=== PATIENT | male | born 1965 | race Caucasian/White ===

== ENCOUNTER → 2016-12-19 | Outpatient (CLI) | payer BC ==
[~2016-12-19] MED LIST: ASPI-1053 PO; HYDR1TAB73 PO
--- NOTE | 2016-12-19 16:07 | DI ---
Indication: ITS.REASON: M54.5 LOW BACK PAIN PROCEDURE: LUMBAR SPINE COMP W/O BEND: Encounter: Initial Comparison: None Findings: Five views of the lumbosacral spine including oblique views demonstrates no fracture or subluxations. There is spina bifida occulta defect of S1. Pedicles and transverse processes are intact. Mild degenerative endplate changes are noted. No pars defects. There are scattered nonspecific calcifications in the left flank region not appearing to project definitively over the kidneys or left ureter. Impression: Age compatible degenerative changes of the spine without traumatic variation. See above. .
== END ==
LOC: IMA 14:51
PROVIDERS: ATTEND Family Medicine
DX: M51.37 Other intervertebral disc degeneration, lumbosacral region (principal); M54.5 Low back pain

== ENCOUNTER 2017-01-04 22:13 | Emergency (ER) | payer BC ==
[~2017-01-04] VITALS: Ht 177.8 cm; Wt 97.2 kg
[~2017-01-04 22:13] MED LIST changes: +ASPI1POW35 PO; +LISI1TAB11 PO
--- OUTSIDE RECORDS SUMMARY | 2017-01-04 22:17 | XMS REPORT | Continuity of Care Document ---
Author Author [facility] Address Unknown Phone Unavailable Allergies Medications Problems Date Dx Coded Attending Type Code Diagnosis Diagnosed By 03/24/2013 Sinan Parikh MD F 038.11 METHICILLIN SUSCEPTIBLE STAPHYLOCOCCUS AUREUS SEPT 03/24/2013 Sinan Parikh MD F 112.3 CUTANEOUS CANDIDIASIS 03/24/2013 Sinan Parikh MD F 262 OTH SEVERE MALNUTRITION 03/24/2013 Sinan Parikh MD F 272.1 PURE HYPERGLYCERIDEMIA 03/24/2013 Sinan Parikh MD F 272.4 HYPERLIPIDEMIA NEC/NOS 03/24/2013 Sinan Parikh MD F 275.2 DIS MAGNESIUM METABOLISM 03/24/2013 Sinan Parikh MD F 276.8 HYPOPOTASSEMIA 03/24/2013 Sinan Parikh MD L F 278.00 OBESITY, NOS 03/24/2013 Sinan Parikh MD F 285.9 ANEMIA NOS 03/24/2013 Sinan Parikh MD L F 287.49 OTHER SECONDARY THROMBOCYTOPENIA 03/24/2013 Sinan Parikh MD L F 320.3 STAPHYLOCOCC MENINGITIS 03/24/2013 Sinan Parikh MD 322.9 MENINGITIS NOS 03/24/2013 Sinan Parikh MD L F 324.1 INTRASPINAL ABSCESS 03/24/2013 Sinan Parikh MD L F 346.90 MIGRAINE UNSPECIFIED W/O INTRACT MGRN W/O STATUS M 03/24/2013 Sinan Parikh MD L F 348.89 OTHER CONDITIONS OF BRAIN 03/24/2013 Sinan Parikh MD L F 349.82 TOXIC ENCEPHALOPATHY 03/24/2013 Sinan Parikh MD L F 401.9 HYPERTENSION NOS 03/24/2013 Sinan Parikh MD L F 427.89 CARDIAC DYSRHYTHMIAS NEC 03/24/2013 Sinan Parikh MD L F 453.81 ACUTE VENOUS EMBOLISM THROMBOSIS SUPERFICIAL VEI 03/24/2013 Sinan Parikh MD L F 478.24 RETROPHARYNGEAL ABSCESS 03/24/2013 Sinan Parikh MD 514 PULM CONGEST/HYPOSTASIS 03/24/2013 Sinan Parikh MD 518.81 ACUTE RESPIRATORY FAILURE 03/24/2013 Sinan Parikh MD 571.8 CHRONIC LIVER DIS NEC 03/24/2013 Sinan Parikh MD 575.0 ACUTE CHOLECYSTITIS 03/24/2013 Sinan Parikh MD 576.8 DIS OF BILIARY TRACT NEC 03/24/2013 Sinan Parikh MD 577.0 ACUTE PANCREATITIS 03/24/2013 Sinan Parikh MD 584.9 ACUTE RENAL FAILURE, UNSPECIFIED 03/24/2013 Sinan Parikh MD 722.91 DISC DIS NEC/NOS-CERV 03/24/2013 Sinan Parikh MD 785.0 TACHYCARDIA NOS 03/24/2013 Sinan Parikh MD 785.52 SEPTIC SHOCK 03/24/2013 Sinan Parikh MD 787.20 DYSPHAGIA, UNSPECIFIED 03/24/2013 Sinan Parikh MD 787.91 DIARRHEA 03/24/2013 Sinan Parikh MD 995.92 SEVERE SEPSIS 03/24/2013 Sinan Parikh MD 996.74 OTH COMPL DUE TO OTH VASCULAR DEVICE, IMPLANT,GRAFT 03/24/2013 Sinan Parikh MD E849.7 ACCID IN RESIDENT INSTIT 03/24/2013 Sinan Parikh MD E879.8 ABN REACT-PROCEDURE NEC 03/24/2013 Sinan Parikh MD E938.3 ADV EFF INTRAVEN ANESTH 03/24/2013 Sinan Parikh MD E947.9 ADV EFF MEDICINAL NOS 03/24/2013 Sinan Parikh MD V03.82 PROPHYLACTIC VACC AGAINST STREPTOCOCCUS PNEUMONIAE Procedures Code Description Performed By Performed On 12.23 SPINAL TAP Sinan Parikh MD 03/24/2013 28.0 PERITONSILLAR I D Vika MCBRIDE, Sourav R 03/24/2013 38.93 VENOUS CATHETERIZATION NEC Sinan Parikh MD 03/24/2013 88.72 DX ULTRASOUND-HEART Magdi MCBRIDE, Wassim H 03/24/2013 96.04 INSERT ENDOTRACHEAL TUBE Fritz Justin MD 03/24/2013 96.6 ENTERAL INFUSION OF CONCENTRATED NUT. SUBSTANCES Sinan Parikh MD 03/24/2013 96.72 CONTINUOUS INVASIVE MECHANICAL VENTILATION=/>96 C Sinan Parikh MD 03/24/2013 Encounters ACCT No. Visit Date/Time Discharge Status Pt. Type Provider Facility Loc./Unit Complaint [id number] 05/07/2013 08:54:00 2012 23:59:59 CLS Outpatient [id number] 04/29/2013 10:05:00 2012 23:59:59 CLS Outpatient
--- OUTSIDE RECORDS SUMMARY | 2017-01-04 22:17 | XMS REPORT ---
Author Author Timothy Nunez Organization [employer] Address Unknown Phone Unavailable Care Team Providers Care Tobacco Sizer Name Role Phone Timothy Nunez CP Unavailable Allergies No Known Allergies Problems Problem Type Condition ICD-9 Code Onset Dates Condition Status Assessment Routine general medical examination at health care facility V70.0 Active Problem Health examination of defined subpopulation V70.5 Active Medications No Known Medications Procedures Procedure Coding System Code Date Collection of drug screen CPT-4 SAMARA Oct 24, 2014 Results No Known Results Summary Purpose [employer] Submission
[2017-01-04 22:32] VITALS: Ht 177.8 cm; Wt 97.2 kg
[2017-01-04] MEDS ORDERED: NORMAL SALINE 1,000 ML IV ONE (23:14)
[2017-01-04] MEDS ORDERED: ONDANSETRON 4mg/2ml INJECTION IV ONE (23:15)
[2017-01-04] MEDS ORDERED: KETOROLAC 30mg/ml INJECTION IV ONE (23:15)
--- OUTSIDE RECORDS SUMMARY | 2017-01-04 23:29 | XMS REPORT | Continuity of Care Document ---
Author Author [facility] Address Unknown Phone Unavailable Allergies Medications Problems [...] Status Pt. Type Provider Facility Loc./Unit Complaint [id number] 05/07/2013 08:54:00 2012 23:59:59 CLS Outpatient [id number] 04/29/2013 10:05:00 2012 23:59:59 CLS Outpatient
--- NOTE | 2017-01-04 23:45 | NUR ---
X-RAY TRANSPORTED TO X-RAY VIA STRETCHER PER X-RAY TECH.
--- NOTE | 2017-01-04 23:56 | NUR ---
ROOM PT RETURNED FROM XRAY PER CART, MOVED PT TO ROOM 1 PT REPORTS HIS PAIN IS DOWN TO 2/20 NOW NAUSEA GONE
[2017-01-05 00:02] LABS: BLOOD, URINE 3+ (NEGATIVE); COLOR,URINE YELLOW (YELLOW); LEUKOCYTE ESTERASE ,URINE NEGATIVE (NEGATIVE); NITRITE,URINE NEGATIVE (NEGATIVE); UROBILINOGEN,URINE 0.2 EU/DL (NORMAL)
[2017-01-05 00:03] LABS: CHLORIDE 103 MEQ/L (98-107)
[2017-01-05 00:06] LABS: ANION GAP 18 MEQ/L (5-15); BUN/CREATININE RATIO 19 RATIO (6-26); CALCIUM 9.8 MG/DL (8.4-10.2); CO2 - CARBON DIOXIDE 21 MEQ/L (22-30); CREATININE 1.4 MG/DL (0.8-1.5); GLOMERULAR FILTRATION RATE 54; GLUCOSE 200 MG/DL (75-110); POTASSIUM 3.4 MEQ/L (3.6-5); SODIUM 142 MEQ/L (134-144)
[2017-01-05 00:09] LABS: BACTERIA,URINE NONE SEEN (NEGATIVE); RBC,URINE 30-50 /HPF (0-3); YEAST,URINE 1+ (NEGATIVE)
[2017-01-05 00:12] LABS: HCT - HEMATOCRIT 48.7 % (41-53); HGB - HEMOGLOBIN 18.2 GM/DL (13.5-17.5); MEAN CORPUSCULAR HGB 31.3 UUG (26-34); MEAN CORPUSCULAR HGB CONC(MCHC 37.4 GM/DL (31-37); MEAN CORPUSCULAR VOLUME 83.8 UM3 (80-100); MEAN PLATELET VOLUME 10.2 UM3 (9.4-12.4); RED BLOOD COUNT 5.81 M/MM3 (4.50-5.90); WBC - WHITE BLOOD COUNT 17.2 T/MM3 (4.5-11.0)
--- NOTE | 2017-01-05 00:12 | NUR ---
STATUS PT REPORTS HIS PAIN IS FINE, RATES PAIN 2/10 DENIES ANY NAUSEA
[2017-01-05 00:18] LABS: BAND NEUTROPHILS # 0.2 T/MM3; MONOCYTES # (MANUAL) 0.2 T/MM3 (0-0.8); NEUTROPHILS #(MANUAL)-ABSOLUTE 15.8 T/MM3 (1.8-7.7); TOTAL CELLS COUNTED 100 %
--- NOTE | 2017-01-05 01:04 | ERPDOC ---
Departure Disposition Decision Date: Jan 05, 2017 Disposition Decision Time: 01:42 Disposition: 01 DISCHARGED HOME, SELF-CARE Impression Impression Impression: Primary Impression: Ureterolithiasis Severity: Moderate Condition: Improved Seen By: Physician only Referrals: LEONEL HERMAN MD (Family) 2 Days ANNAMARIE PARRA MD 1 Week Patient Instructions: Ureteral Stones (ED) Problems/Meds/Labs Reviewed?: Yes Medications reviewed and manag: Yes Additional Instructions: You have two stones that haven't made it from your kidney into your ureter. This would explain why your pain is chronic and not improving. Take naproxen as needed for pain; take the norco for pain that is not controlled. Follow up with your doctor and call Dr. Parra's office for an appointment. Follow up care ordered?: Yes Mental Status: Alert, Oriented Scripts Hydrocodone/Acetaminophen (Reliance 5-325 Tablet) 5-325 Tablet 1-2 TAB PO Q6HR Y for PAIN, #20 TAB 0 Refills Prov: JANUARY,KARRIE Us DO 01/05/17 HPI - Abdominal Pain General Chief Complaint: Nausea,Vomiting,Diarrhea Stated Complaint: BACK PAIN,VOMITING Time Seen by Provider: 23:14 Source: patient, family History/Exam Limitations: no limitations HPI - Abdominal Pain Initial Comments 51yo man presented to the ER tonight for left flank pain. Pt has had pain in the same spot for the last 10 months. Pt started a colonoscopy prep earlier today; pain has gotten precipitously worse since then. Pt took some mobic that he had at home without significant relief. Pain is sharp. Occurred At: home Onset: Rapid, Getting worse Duration: 12-24 hrs Pain Scale: Now: 2/10, Worst: 8/10 Quality: sharpness Location: left flank Radiation: no radiation Activities at Onset: none Modifying Factors: IMPROVES WITH: analgesics Associated Symptoms: nausea/vomiting Hx of Similar Symptoms: Yes Allergies: Coded Allergies: No Known Drug Allergies (Verified Allergy, Unknown, 01/04/17) Past History Past Medical History Male: kidney stones Neurological: migraines Vaccines Hx Influenza Vaccination: No Hx Pneumococcal Vaccination: No Review of Systems GI Upper Abdomen: nausea Lower Abdomen: pain All other Systems All Other Systems: Reviewed and Negative Physical Exam General General Nourishment: well nourished, well developed, appears stated age, no acute distress, adult, obese General Body Habitus: well groomed Vitals and Pain Weight: Kilograms: Height (feet): Height (inches): Triage Pain Scale: RN VS reviewed by Provider: Yes Normal Exams: Head: Normocephalic w/o trauma Eyes: Pupils are PERRLA w/ EOMI, No scleral icterus, irritation ENMT: No facial trauma, nasal exudates, pharyngeal erythema Neck: Full range of motion, without adenopathy, JVD Lymphatic: No lymphadenopathy Musculoskeletal: No tenderness, or deformity noted Integumentary: No rashes, hives, or bruising noted Neurologic: Patient is alert, and oriented Psychiatric: Patient exhibits, appropriate attention Respiratory (brief) Respiratory: FOUND: clear all diggs, equal bilaterally, symmetrical, NOT FOUND : rales, wheezes Cardiovascular (brief) Cardiac: FOUND: regular rate, regular rhythm, NOT FOUND: click, gallop, murmur , pedal edema, peripheral edema, rub Capillary Refill: <2 sec Pulses: all distal extremities, equal, strong Abdomen (brief) Abdominal Brief: FOUND: bowel normo active x4, soft, NOT FOUND: distended, hepatosplenomegaly, pulsatile mass, tender Differential Diagnoses Considering: Bowel Obstruction, Constipation, Diverticulitis, Gastroenteritis, GERD, Hernia, Ileus, Pyelonephritis, Renal Colic, UTI, Volvulus Progress Results/Orders Orders Procedure Category Date Status Time Cbc W/Auto LAB 01/04/17 Complete Diff-Reflex Manual 23:14 Bmp - Basic Metabolic LAB 01/04/17 Complete Panel 23:14 Iv Lock (Ed Only) EDM 01/04/17 Transmitted 23:14 Normal Saline (Normal PHA 01/04/17 Complete Saline Iv) 23:14 Ketorolac (Toradol) PHA 01/04/17 Complete 23:15 Ondansetron Inj PHA 01/04/17 Complete (Zofran) 23:15 Kub W/Upright RAD 01/04/17 Taken UA, LAB 01/04/17 Complete Dip&Micro(Complete) & 23:41 Ct Renal W/O Contrast CT 01/05/17 Taken 00:18 Hydrocodone/Apap PHA 01/05/17 Complete 5/325 Prepack (Reliance 5 01:45 Ondansetron Odt PHA 01/05/17 Complete (Prepack) (Zofran Odt 02:00 Lab Results Laboratory Tests Test 01/04/17 23:27 01/04/17 23:41 White Blood Count 17.2T/MM3 Red Blood Count 5.81M/MM3 Hemoglobin 18.2GM/DL Hematocrit 48.7% Mean Corpuscular Volume 83.8UM3 Mean Corpuscular Hemoglobin 31.3UUG Mean Corpuscular Hemoglobin Concent 37.4GM/DL RDW Standard Deviation 39.5FL Platelet Count 202T/MM3 Mean Platelet Volume 10.2UM3 Immature Granulocyte % (Auto) % Neutrophils (%) (Auto) % Lymphocytes (%) (Auto) % Monocytes (%) (Auto) % Eosinophils (%) (Auto) % Basophils (%) (Auto) % Absolute Immature Granulocyte (auto T/MM3 Absolute Neutrophils (auto) T/MM3 Absolute Lymphocytes (auto) T/MM3 Absolute Monocytes (auto) T/MM3 Absolute Eosinophils (auto) T/MM3 Absolute Basophils (auto) T/MM3 Neutrophils % (Manual) 92.0% Band Neutrophils % 1.0% Lymphocytes % (Manual) 6.0% Monocytes % (Manual) 1.0% Absolute Neutrophils (Manual) 15.8T/MM3 Band Neutrophils # 0.2T/MM3 Lymphocytes # (Manual) 1.0T/MM3 Monocytes # (Manual) 0.2T/MM3 Red Cell Morphology Comment Normal Turbidity < 20 Sodium Level 142MEQ/L Potassium Level 3.4MEQ/L Chloride Level 103MEQ/L Carbon Dioxide Level 21MEQ/L Anion Gap 18MEQ/L Blood Urea Nitrogen 27.0MG/DL Creatinine 1.4MG/DL Glomerular Filtration Rate Calc 54 BUN/Creatinine Ratio 19RATIO Glucose Level 200MG/DL Calculated Osmolality 284MOSM/KG Calcium Level 9.8MG/DL Icterus Index < 2 Chemistry Specimen Hemolysis < 15 Urine Collection Type Cleancatch-midstream Urine Color Yellow Urine Turbidity Sl cloudy Urine pH 5.5 Urine Specific [place] >=1.030 Urine Protein 2+ Urine Glucose (UA) Negative Urine Ketones 1+ Urine Blood 3+ Urine Nitrite Negative Urine Bilirubin Negative Urine Urobilinogen 0.2EU/DL Urine Leukocyte Esterase Negative Urine RBC 30-50/HPF Urine WBC 3-5/HPF Urine Bacteria None seen Urine Yeast 1+ Urine Culture Indicated Cult not indicated Medications Current ED Medications Sodium Chloride (Normal Saline IV) 1,000 ml @ 0 mls/hr Q0M ONCE IV Last administered on 01/04/17 23:34; Start 01/04/17 at 23:14; Stop 01/04/17 at 23:15 ; Status DC Ketorolac Tromethamine (Toradol) 30 mg O ONCE IV Last administered on 23:36; Start 01/04/17 at 23:15; Stop 01/04/17 at 23:16; Status DC Ondansetron HCl (Zofran) 4 mg O ONCE IV Last administered on 01/04/17 23:34; Start 01/04/17 at 23:15; Stop 01/04/17 at 23:16; Status DC Acetaminophen/ Hydrocodone Bitart (NORCO 5 (PrePack)) 1 pack O ONCE SENT HOME Last administered on 01/05/17 01:57; Start 01/05/17 at 01:45; Stop 01/05/17 at 01:47; Status DC Ondansetron HCl (ZOFRAN (PrePack)) 1 pack O ONCE SENT HOME ; Start 01/05/17 at 01:45; Stop 01/05/17 at 01:46; Status Cancel Ondansetron HCl (ZOFRAN ODT (PrePack)) 1 pack O ONCE SENT HOME Last administered on 01/05/17 01:57; Start 01/05/17 at 02:00; Stop 01/05/17 at 02:01 ; Status DC Progress Progress Pt with two stones in the left renal pelvis; may be causing intermittent obstruction. Will prescribe meds for pain control and refer to urology for eval/ treatment as outpt. Pt voiced understanding of dx, prognosis, and tx. F/u with PCM. CT CT : CT: Abd/Pelvis IV contrast Interpretation: Abnormal (2 stones in the left renal pelvis (greatest is 6mm ); b/l nephrolithiasis; sigmoid diverticulosis) KARRIE WILCOX DO Jan 05, 2017 01:04
--- NOTE | 2017-01-05 01:20 | NUR ---
STATUS PT RESTING QUIETLY WITH EYES CLOSED AROUSES EASILY TO VERBAL STIMULI
[2017-01-05] MEDS ORDERED: HYDR-4246 PO (01:45)
[2017-01-05] MEDS ORDERED: ONDANSETRON LIQ 4mg/5ml #3 (PrePack) SENT HOME ONE (01:45)
[2017-01-05] MEDS ORDERED: HYDROCODONE/APAP 5/325 (PrePack) SENT HOME ONE (01:45)
[2017-01-05] MEDS ORDERED: ONDANSETRON ODT 4mg #3 (PrePack) SENT HOME ONE (02:00)
--- NOTE | 2017-01-05 02:00 | NUR ---
IVL IVL DC'D WITH CATH INTACT DRSG APPLIED TO IV SITE PT JACQUELINE WELL
--- NOTE | 2017-01-05 02:01 | NUR ---
INSTRUCTIONS DISMISSAL AND MEDICATION INSTRUCTIONS GIVEN TO PT DISP ZOFRAN AND NORCO PREPACK WITH INSTRUCTIONS RX GIVEN FOR NORCO WITH INSTRUCTIONS ALSO PT VERBALIZED UNDERSTANDING OF ALL
[2017-01-05 02:03] VITALS: BP 106/66; PULSE 71; RESP 16; TEMP 97.3; O2SAT 98
--- NOTE | 2017-01-05 02:03 | NUR ---
DISMISS PT DISMISSED AMBULATORY WITH ADULT MALE
--- NOTE | 2017-01-05 08:05 | DI ---
Indication: ITS.REASON: Flank pain PROCEDURE: KUB W/UPRIGHT: Encounter: Initial Comparison: Renal CT from the same date Findings: The visualized lung bases are clear. There is no free air on the upright view. The bowel gas pattern is nonobstructive and nonspecific. Gas is seen in nondilated small and large bowel to the level of the rectum. Moderate stool is seen throughout the colon. The bony structures are grossly unremarkable. Bilateral renal stones are better evaluated on CT. Small nondifferential air-fluid levels are nonspecific. Impression: Nonobstructive nonspecific bowel gas pattern. Nephrolithiasis. Please see the CT report for further details. .
--- NOTE | 2017-01-05 08:05 | DI ---
Indication: ITS.REASON: Flank pain PROCEDURE: CT RENAL W/O CONTRAST: Encounter: Initial Comparison: None Technique: Axial CT images were performed through the abdomen and pelvis without intravenous contrast. Coronal and sagittal two-dimensional reformats. Automated Exposure Control and Iterative Reconstruction dose reducing techniques were utilized. Findings: Probable intrapulmonary lymph node along the right major fissure. Bibasilar atelectasis. The liver is decreased in attenuation consistent with fatty infiltration. The gallbladder is unremarkable. The spleen is enlarged. The pancreas is unremarkable. Adrenal glands are normal. Bilateral parapelvic cysts in both kidneys. Right kidney shows a small nonobstructing stone in the inferior pole. No ureteral stones. There are two stone fragments in the left ureteral pelvic junction area with the larger measuring 7 mm and the smaller measuring 4 mm in size. Bladder is some nondependent gas could be due to recent instrumentation. Prostate and rectum are unremarkable. Mild colonic diverticulosis without diverticulitis. No bowel obstruction. Bone windows are unremarkable for age. Impression: 1. Bilateral nephrolithiasis with stones in the left ureteropelvic junction region that could be causing mild obstruction. 2. Hepatic stenosis. There is a preliminary report by [employer]. .
== END 2017-01-05 02:03 | disposition home or self-care (01) ==
LOC: ED 22:13
DX: N20.0 Calculus of kidney (principal); Z87.442 Personal history of urinary calculi
CPT/HCPCS: 74020; 74176; 80048; 81001; 85025; 96374; 96375; 99284; J1885; J2405; J7030; 81003

== ENCOUNTER 2017-01-05 06:32 | Day surgery (SDC) | payer BC ==
[~2017-01-05] VITALS: Ht 177.8 cm; Wt 98.3 kg
[~2017-01-05 06:32] MED LIST changes: +HYDR-4246 PO
--- OUTSIDE RECORDS SUMMARY | 2017-01-05 06:36 | XMS REPORT | Continuity of Care Document ---
Author Author [facility] Address Unknown Phone Unavailable Allergies Medications Problems [...] Status Pt. Type Provider Facility Loc./Unit Complaint [id number] 05/07/2013 08:54:00 2012 23:59:59 CLS Outpatient [id number] 04/29/2013 10:05:00 2012 23:59:59 CLS Outpatient
[2017-01-05] MEDS ORDERED: LR 1,000 ML IV SCH (07:00)
[2017-01-05] MEDS ORDERED: LIDOCAINE 1% (10mg/ml) 2ml SDV INJ ONE (07:00)
--- NOTE | 2017-01-05 07:20 | ANESPREOP ---
Anesthesia Record Date and Time DATE: 01/05/17 TIME: 07:17 Pre-Op Diagnosis colonoscopy Proposed Surgical Procedure SCREENING NPO since: mn Allergies: Coded Allergies: No Known Drug Allergies (Verified Allergy, Unknown, 01/05/17) Ht/Wt/BMI Height: ' " Weight: kg BMI: kg/m2 Medications Inpatient Medications Current Medications Medications (Trade) Dose Ordered Sig/Lesli Start Time Stop Time Status Last Admin Dose Admin Lactated Ringer's (Lactated Ringers) 1,000 ml @ 50 mls/hr Q20H 01/05/17 07:00 Aspirin/Caffeine (Bc Powder Packet) 1 Each Powd.pack, 2 PKG PO DAILY, (Reported) Last Taken: on 01/03/17 Hydrocodone/Acetaminophen ([place] 5-325 Tablet) 5- 325 Tablet, 1-2 TAB PO Q6HR PRN for PAIN Last Taken: on Unknown Date & Time Lisinopril/Hydrochlorothiazide ( Lisinopril-Hctz 20-12.5 mg Tab) 1 Each Tablet, 1 TAB PO DAILY, (Reported) Last Taken: on 01/04/17 1000 Currently on Beta [place]: No Medical/Surgical History Anesthesia PMH: Reports: *Hypertension, Arthritis (BACK), Headaches (MIGRAINES) , Reflux, Denies: *Diabetes, *IN, Anesthesia Reactions (NO AIRWAY ISSUES), Blood Transfusion Reac, CHF, COPD, CVA/Stroke/TIA, Cancer, Glaucoma, Hepatitis, Malignant Hyperthermia, Pacemaker, Renal Disease, Rheumatic Fever, Seizures Smoking Status: Never smoker Has pt. smoked today?: No Use Chewing Tobacco?: No Second Hand Exposure: No Substance Use Type: does not use Past Surgical History Orthopedic Surgeries: Abdominal Surgeries: Yes - APPENDECTOMY Genitourinary Surgeries: Yes - RT URETERAL RECONSTRUCTION Cardiac Surgeries: Endocrine Surgeries: Reproductive Surgeries: Neurological Surgeries: Ear Surgeries: Nose Surgeries: Throat Surgeries: Other Surgeries: Yes - RT URETERAL RECONSTRUCTION Anesthesia Adverse Reactions: FOUND none Family Hx of Anesthesia Advers: none Hx of Motion Sickness: No Pertinent Findings EKG Rhythm: Sinus Rhythm Physical Exam Respiratory: Bilat breath sounds equal, Lungs clear Cardiovascular: FOUND Regular rate, rhythm, FOUND No murmur Airway Assessment Mallampati Score: I TMD: 3 Fingerbreadths Neck Extension: Good Overall Assessment: No Airway Concerns ASA: 2 Plan Anesthesia Plan: TIVA Discussion Discussed risks/options/alternatives of anesthesia and questions answered. Patient consents. Nursing pain assessment noted. Attestation Statement Prior to the delivery of any anesthetic medication, I examined the patient, developed the plan, obtained the patient's consent and discussed the risk and benefits of the procedure with the patient/guardian. BRADEN BARKLEY CRNA Jan 05, 2017 07:20
[2017-01-05 07:22] VITALS: Ht 177.8 cm; Wt 98.3 kg
[2017-01-05] MEDS ORDERED: PROPOFOL 500mg 50 ML IV ONE (08:10)
[2017-01-05] MEDS ORDERED: LIDOCAINE 2% (20mg/ml) 5ml PF SDV ONE (08:11)
[2017-01-05] MEDS ORDERED: FENTANYL 100mcg/2ml INJECTION ONE (08:15)
[2017-01-05 08:37] VITALS: BP 91/57; PULSE 77; RESP 12; TEMP 97.6; O2SAT 94
[2017-01-05 08:52] VITALS: BP 102/60; PULSE 81; RESP 16; O2SAT 96
--- NOTE | 2017-01-05 08:57 | ANESPO ---
Post-Op Note Date 01/05/17 Time: 08:42 Status Pt Participated in Evaluation: Pt participated in person Vital Signs Date Time Temp Pulse Resp B/P Pulse Ox O2 Delivery O2 Flow Rate FiO2 01/05/17 08:37 97.6 77 12 91/57 94 Room Air Respiratory Function: Airway patent Mental Status: Alert/oriented Pain Level Intensity: 0 Hydration: IV infusing Complications during Recovery None apparent Follow-Up Instructions Instructions Per Surgeon BRADEN BARKLEY CRNA Jan 05, 2017 08:57
[2017-01-05 09:07] VITALS: BP 125/88; PULSE 72; RESP 16; O2SAT 96
--- NOTE | 2017-01-05 23:04 | OPNOTEF ---
DATE OF PROCEDURE: 01/05/2017 SURGEON: Pavel Abbott MD PREOPERATIVE DIAGNOSIS Colorectal cancer surveillance. POSTOPERATIVE DIAGNOSIS Colorectal cancer surveillance, colonic polyp x 1 located at 70 cm from the anal verge, mild diverticulosis. PROCEDURE: Colonoscopy with polypectomy via hot forceps technique. ANESTHESIA: TIVA. BRIEF HISTORY Jesus is a 51-year-old male who was seen for physical. He had never had a colonoscopy and we decided to proceed with colonoscopy as a part of his colorectal cancer. For completeness please refer to office notes. FINDINGS Upon colonoscopy there was no evidence for angiodysplastic lesions or maritza malignancies. The patient was found to have mild diverticulosis within the sigmoid colon region. He has also found to have a single colonic polyp. This polyp was 70 cm from the anal verge and was approximately 5-6 mm in diameter. It was removed via hot forceps technique and sent to Pathology. DESCRIPTION OF PROCEDURE After informed consent was obtained, the patient was brought to the endoscopy suite and placed on the table in the left lateral decubitus position. The patient subsequently underwent total intravenous anesthesia by the nurse agricultural engineering technicians per my request. Next, a digital rectal examination was performed; normal sphincter tone. No rectal masses were appreciated. An Olympus colonoscope was inserted in the anus and advanced with the lumen of the colon under direct visualization at all times until the cecum was ascertained. Triangulation of the tenia coli, ileocecal valve and appendiceal lumen were all visualized. The scope was then slowly withdrawn, again while maintaining visualization of the lumen at all times. As stated above, the entire colon was without evidence for angiodysplastic lesions or maritza malignancies. The patient was found to have mild diverticulosis as well as one colonic polyp. This polyp was 70 cm from the anal verge, a flat polyp approximately 5-6 mm in diameter. It was removed via hot forceps technique and sent to Pathology. Photographs were obtained for documentation. The scope continued to be withdrawn until it was removed from the patient's anal verge. The patient tolerated the procedure without difficulty and was sent back to the preoperative area in stable condition. We will await the biopsy results to make further recommendations. If this polyp is hyperplastic he gets to go ten years. If it is a tubular adenoma we will be looking at five years. I will be surprised, but if it is tubulovillous we will look at three years. MTDD
== END 2017-01-05 09:21 | disposition home or self-care (01) ==
LOC: NSC 06:32
PROVIDERS: ATTEND Family Medicine
DX: Z12.11 Encounter for screening for malignant neoplasm of colon (principal); D12.6 Benign neoplasm of colon, unspecified; K57.30 Diverticulosis of large intestine without perforation or abscess without bleeding; M54.5 Low back pain; Z79.899 Other long term (current) drug therapy
CPT/HCPCS: 45384; 82948; J2704; J3010; J7120